=== PATIENT | female | born 1990 | race Caucasian/White ===

== ENCOUNTER → 2018-08-05 | Outpatient (REF) | payer OTHER ==
[2018-08-09 16:39] LABS: HPV HYBRID CAPTURE II Negative (Negative)
== END ==
LOC: M LAB REF 17:17
PROVIDERS: ATTEND Advanced Practice Midwife
DX: Z01.411 Encounter for gynecological examination (general) (routine) with abnormal findings (principal); Z11.51 Encounter for screening for human papillomavirus (HPV)
CPT/HCPCS: 87624; G0123

== ENCOUNTER → 2018-08-05 | Outpatient (CLI) | payer BC ==
[2018-08-05 19:00] LABS: HCG, SERUM QUALITATIVE NEGATIVE (NEGATIVE)
== END ==
LOC: M SMT 15:08
PROVIDERS: ATTEND Advanced Practice Midwife
DX: Z01.419 Encounter for gynecological examination (general) (routine) without abnormal findings (principal)

== ENCOUNTER → 2018-11-18 | Outpatient (CLI) | payer BC ==
[2018-11-18 14:05] LABS: BASO % 0.5 % (0.0-1.0); EOS # 0.1 10^3/uL (0.0-0.50); EOS % 0.8 % (0.0-3.0); HEMOGLOBIN 14.8 g/dl (12.0-15.5); LYMPH # 1.8 10^3/uL (1.5-4.5); LYMPH % 23.9 % (24.0-44.0); MEAN CORPUSCULAR HGB CONC 34.4 g/dl (32.0-36.5); MONO # 0.6 10^3/uL (0.0-0.8); NEUTROPHILS % 66.5 % (36.0-66.0); PLATELET COUNT, AUTOMATED 341 10^3/uL (150-450); RED BLOOD COUNT 4.78 10^6/uL (4.00-5.40); WHITE BLOOD COUNT 7.5 10^3/uL (4.0-10.0)
[2018-11-18 14:55] LABS: HEPATITIS C VIRUS ABY INDEX < 0.0 INDEX (<0.8); HIV 1&2 SCREEN CENTAUR NEGATIVE (NEGATIVE); RUBELLA IgG QUALITATIVE IMMUNE (IMMUNE)
[2018-11-18 15:31] LABS: CHLAMYDIA DNA AMPLIFICATION NEGATIVE (NEGATIVE); GC DNA AMPLIFICATION NEGATIVE (NEGATIVE)
== END ==
LOC: M SMT 10:48
PROVIDERS: ATTEND Advanced Practice Midwife
DX: Z36.89 Encounter for other specified antenatal screening (principal); Z3A.00 Weeks of gestation of pregnancy not specified

== ENCOUNTER → 2019-01-13 | Outpatient (CLI) | payer BC ==
--- NOTE | 2019-01-13 10:50 | REP ---
Clinical: Anatomical evaluation. Comparison: None . Findings: Examination demonstrates a single live intrauterine in cephalic presentation. motion is identified by technologist. Placenta is noted anterior and grade 1 without evidence for placenta previa or abruption. Amniotic fluid volume is normal. Cervix measures 3.8 cm in length and appears closed. Nuchal cord cannot be excluded. 2.1 cm anterior intramural fibroid noted. Gestational age by LMP 19 weeks 0 days with HOLLY 06/09/2019 . Gestational age by current measurements 19 weeks 4 days with HOLLY 06/05/2019 . FHR equals 150 beats per minute. BPD 4.6 cm 19 weeks 5 days HC 17.1 cm 19 weeks 5 days AC 14.5 cm 19 weeks 5 days FL 3.2 cm 19 weeks 6 days HL 2.8 cm 19 weeks 1 day HC/AC ratio 1.18 Estimated weight 312 grams ( 77th percentile). Anatomical assessment demonstrates normal structures including cranium, choroid plexus, cavum, cerebellum/posterior fossa, lungs, four-chamber heart, diaphragm, stomach, cord insertion/three-vessel cord, kidneys/bladder, spine, and extremities. Limited evaluation of the facial features and cardiac ventricular outflow tract. Impression: 1. Single live intrauterine in cephalic presentation demonstrating appropriate interval growth. 2. Anterior intramural fibroid. 3. Nuchal cord cannot be excluded. 4. Limited evaluation of the facial features and cardiac ventricular outflow tract. Electronically Signed by New Skinner MD 01/13/2019 10:41 A
== END ==
LOC: M RAD 09:46
PROVIDERS: ATTEND Advanced Practice Midwife
DX: O34.12 Maternal care for benign tumor of corpus uteri, second trimester (principal); Z36.89 Encounter for other specified antenatal screening; Z3A.19 19 weeks gestation of pregnancy; D25.1 Intramural leiomyoma of uterus

== ENCOUNTER → 2019-01-27 | Outpatient (CLI) | payer BC ==
--- NOTE | 2019-01-27 16:23 | REP ---
Obstetric sonography: History: Supervision of , followup anatomy. Findings: Scanning through the gravid uterus demonstrates a viable single intrauterine in a variable lie. motion is observed and heart rate is recorded at 146 beats per minute. An anterior grade 0 placenta is seen without evidence of previa or abruption. Amniotic fluid is subjectively normal. Closed cervical length is 3.3 cm. No extrauterine abnormalities observed. There has been appropriate interval growth. There is a venous placental oliveira noted 4 cm in greatest diameter. There is a possible fibroid in the anterior aspect of the uterus 1.5 cm in greatest diameter. The following anatomic structures are identified today and felt to be unremarkable: cranium, choroid plexus, cavum, cerebellum and posterior fossa, face and profile, lungs, four-chamber heart with right ventricular outflow tract view, diaphragm, left-sided stomach, abdominal wall cord insertion, three-vessel cord, kidneys and bladder, spine. Biometry chart: BPD 5.1 cm = 21 weeks 4 days HC 19.2 cm = 21 weeks 3 days AC 16.7 cm = 21 weeks 5 days FL 3.5 cm = 21 weeks 0 days HL 3.5 cm = 21 weeks 6 days HC/AC ratio normal 1.15. Cephalic index normal 0.74. Estimated weight 419 grams, 0 pounds 14 ounces, 60th percentile for 21 weeks 0 days. Impression: Viable single intrauterine gestation at 21 weeks 1 day by today's composite sonographic criteria. Expected gestational age estimate based on prior sonography is 21 weeks 4 days. HOLLY by prior sonography June 05, 2019. There has been appropriate interval growth. In conjunction with previous sonogram, anatomic survey is felt to be complete. Electronically Signed by Patrick Chowdhury MD 01/27/2019 04:31 P
== END ==
LOC: M RAD 13:14
PROVIDERS: ATTEND Obstetrics & Gynecology
DX: Z34.02 Encounter for supervision of normal first pregnancy, second trimester (principal); Z36.2 Encounter for other antenatal screening follow-up; Z3A.21 21 weeks gestation of pregnancy

== ENCOUNTER → 2019-03-03 | Outpatient (CLI) | payer BC ==
[2019-03-03 19:44] LABS: HEMATOCRIT 40.2 % (36.0-47.0); MEAN CORPUSCULAR HEMOGLOBIN 29.1 pg (27.0-33.0); MEAN CORPUSCULAR HGB CONC 32.3 g/dl (32.0-36.5); MEAN CORPUSCULAR VOLUME 89.9 fl (80.0-96.0); PLATELET COUNT, AUTOMATED 311 10^3/uL (150-450); RED BLOOD COUNT 4.47 10^6/uL (4.00-5.40); WHITE BLOOD COUNT 10.1 10^3/uL (4.0-10.0)
== END ==
LOC: M SMT 11:41
PROVIDERS: ATTEND Obstetrics & Gynecology
DX: Z34.02 Encounter for supervision of normal first pregnancy, second trimester (principal); Z3A.00 Weeks of gestation of pregnancy not specified

== ENCOUNTER → 2019-05-09 | Outpatient (REF) | payer BC | LOC: M SFHCWAGY 09:50 | PROVIDERS: ATTEND Specialist | DX: Z36.85 Encounter for antenatal screening for Streptococcus B (principal) ==

== ENCOUNTER 2019-05-18 09:46 | Inpatient (IN) | payer BC ==
[~2019-05-18] VITALS: Ht 167.6 cm; Wt 104.1 kg
[2019-05-18] MEDS ORDERED: PRENTAB9 PO (10:00)
[2019-05-18 10:07] VITALS: BP 123/67
[2019-05-18] MEDS ORDERED: LR 1,000 ML IV SCH (10:50)
[2019-05-18] MEDS ORDERED: PENICILLIN G POTASSIUM IV 5 MU in D5W MINI-BAG PLUS 100 ML IV STA (10:50)
[2019-05-18] MEDS ORDERED: LACTATED RINGER'S 1000 ML IV STA (10:50)
[2019-05-18] MEDS ORDERED: OXYTOCIN 30 UNITS IN 0.9% NaCl 500ML IV BAG (J2590) As Ordered ONE (11:10)
[2019-05-18 11:17] LABS: HEMOGLOBIN 14.1 g/dl (12.0-15.5); MEAN CORPUSCULAR HEMOGLOBIN 30.1 pg (27.0-33.0); MEAN CORPUSCULAR HGB CONC 34.4 g/dl (32.0-36.5); MEAN CORPUSCULAR VOLUME 87.4 fl (80.0-96.0); PLATELET COUNT, AUTOMATED 301 10^3/uL (150-450); RED BLOOD COUNT 4.69 10^6/uL (4.00-5.40); WHITE BLOOD COUNT 17.3 10^3/uL (4.0-10.0)
--- NOTE | 2019-05-18 11:29 | HPE ---
DATE OF ADMISSION: 05/18/2019 REASON FOR ADMISSION: Spontaneous rupture of membranes. 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 She reports contractions which started approximately at 4 a.m. this morning. She denied any vaginal bleeding. Upon evaluation in the labor and delivery, she reports a gush of clear fluid. Reports active movement. Her course has been unremarkable. She initiated care in the first trimester that has been appropriate throughout. PAST MEDICAL HISTORY: None. PAST SURGICAL HISTORY: None. PAST OBSTETRICAL HISTORY: She is 1. Her medications include: - vitamins She has no known drug allergies. SOCIAL HISTORY: She denies any alcohol, tobacco, or drug use during her . On physical examination, her vital signs are stable. She is afebrile. She has a heart rate as 120s with moderate variability. Contractions are approximately every 2 minutes on tocometer. Her general appearance is no acute distress. Her lungs are clear to auscultation bilaterally. Cardiovascular: Heart, regular rate and rhythm. Her abdomen is gravid, nontender. Cervical examination: She is grossly ruptured, 5 cm dilated, 90% effaced, -1 station. LABORATORIES: Blood type is O negative. Antibody screen is negative. Rubella is immune. Rapid plasma reagin (RPR) is nonreactive. Hepatitis surface antigen is negative. HIV is negative. Hepatitis C is nonreactive. Chlamydia and gonorrhea screens are negative. She had a normal 1-hour Glucola. She is Group B streptococcus (GBS) positive. 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 Spontaneous rupture of membranes. 2. Reassuring status. The plan is: 1. Admit to labor and delivery. 2. CBC, rapid plasma reagin (RPR), type and screen. 3. Penicillin for group B streptococcus positive. 4. Anticipate spontaneous vaginal delivery.
[2019-05-18 12:24] VITALS: BP 140/85
[2019-05-18] MEDS ORDERED: OXYTOCIN DRIP 30 UNITS in IV 1 EA IV SCH (13:12)
[2019-05-18] MEDS ORDERED: ACETAMINOPHEN 500 MG TAB PO PRN (13:15)
[2019-05-18] MEDS ORDERED: ANUSOL HC CREAM 30GM TOP PRN (13:15)
[2019-05-18] MEDS ORDERED: DIBUCAINE 1% OINTMENT 30GM TOP PRN (13:15)
[2019-05-18] MEDS ORDERED: ACETAMINOPHEN TAB 650MG DOSE (2X325MG) PO PRN (13:15)
[2019-05-18] MEDS ORDERED: MOM 30ML SUSPENSION UDC PO PRN (13:15)
[2019-05-18] MEDS ORDERED: IBUPROFEN 800 MG TAB PO PRN (13:15)
[2019-05-18] MEDS ORDERED: MEASLES,MUMPS,RUBELLA VACCINE INJ (MMR-II) (90707) SC SCH (13:15)
[2019-05-18] MEDS ORDERED: RHOGAM 300 MCG (1500 IU) INJ (J2790) IM SCH (13:15)
[2019-05-18] MEDS ORDERED: METHYLERGONOVINE MALEATE 0.2 MG TAB PO PRN (13:15)
--- NOTE | 2019-05-18 13:42 | DN ---
DATE: 05/18/2019 TIME OF : 1243 GENDER: Male. APGARS: 9 and 10 WEIGHT: 3540 grams or 7 pounds 13 ounces. ANESTHESIA: None. ESTIMATED BLOOD LOSS: 300 mL. LACERATIONS: None. COUNTS: 10 laparotomy sponges accounted to prior to after delivery. Two sharps removed from delivery field. DELIVERY NOTE: On 05/18/2019, at 1243, De. De lRio, a 29-year-old 1 now para 1, had a spontaneous vaginal delivery of a live born male infant, Apgars 9 and 10, weight was 3540 grams 7 pounds 13 ounces. Head was delivered occiput anterior (OA) over intact perineum followed by delivery of shoulder and corpus. Infant was handed to mom with good cry. Cord was clamped times two, was cut by the father of baby under my direction. Cord blood was obtained. Placenta was then drained and delivered grossly intact. A pre-mixed bag of 500 ounces of normal saline with 30 units of Pitocin was then bolused along with uterine massage. The uterus was firm on inspection. There was some vaginal abrasions. No definitive lacerations. Cervix, vaginal and perineum was hemostatic. Mom and baby recovered in stable condition.
[2019-05-18] MEDS ORDERED: PENICILLIN G POTASSIUM IV 2.5 MU in IV 1 EA IV SCH (15:00)
[2019-05-18 16:04] VITALS: BP 131/78
[2019-05-18 18:00] VITALS: BP 142/66
[2019-05-18] MEDS: DOCUSATE SODIUM 100 MG CAP PO PRN (20:50)
[2019-05-18] MEDS: IBUPROFEN 600 MG TAB PO PRN (20:52)
[2019-05-19 06:00] VITALS: BP 121/70
[2019-05-19] MEDS: PRENATAL VITAMINS CHEWABLE TABLET PO SCH (08:38)
--- NOTE | 2019-05-19 08:51 | IPNPDOC ---
Text Note Date of Service The patient was seen on 05/19/19. NOTE PP #1 Feels well. Adequate pain management. . Voiding. VSS, afebrile, normotensive. Breasts soft, nipples intact Fundus firm, NT, down 1 FB Lochia rubra light without odor Perineum intact PPD #1 Frequent nursing. Anticipate D/C in am VS,Fishbone, I+O VS, Fishbone, I+O Laboratory Tests 05/18/19 11:03 Vital Signs Date Time Temp Pulse Resp B/P (MAP) Pulse Ox O2 Delivery O2 Flow Rate FiO2 05/19/19 06:00 98.0 81 20 121/70 (87) 97 Room Air I&O- Last 24 Hours up to 6 AM 05/19/19 06:00 Intake Total 1600 ml Output Total 700 ml Balance 900 ml Lily Gutierrez CNM May 19, 2019 08:51
[2019-05-19] MEDS ORDERED: guaiFENesin SYRUP 200 MG/10 ML UDC PO PRN (12:00)
[2019-05-19 18:00] VITALS: BP 118/69
[2019-05-19] MEDS: DOCUSATE SODIUM 100 MG CAP PO PRN (20:22)
[2019-05-20 06:00] VITALS: BP 104/68
[2019-05-20] MEDS: PRENATAL VITAMINS CHEWABLE TABLET PO SCH (08:11)
[2019-05-20] MEDS: IBUPROFEN 600 MG TAB PO PRN (08:13)
[2019-05-20 18:00] VITALS: BP 117/67
[2019-05-21 06:00] VITALS: BP 125/81
[2019-05-21] MEDS ORDERED: IBUP80TA PO (08:30)
[2019-05-21] MEDS ORDERED: ACET-683 PO (08:30)
[2019-05-21] MEDS: PRENATAL VITAMINS CHEWABLE TABLET PO SCH (09:27)
== END 2019-05-21 11:40 | disposition home or self-care (01) | DRG 560 ==
LOC: M LDO 09:46 → M LDI 10:44 → M OBS 16:03
PROVIDERS: ADMIT Obstetrics & Gynecology; ATTEND Obstetrics & Gynecology
PROC: 10E0XZZ Delivery of Products of Conception, External Approach (ICD-10-PCS; principal; 2019-05-18)
DX: O42.013 Preterm premature rupture of membranes, onset of labor within 24 hours of rupture, third trimester (principal); Z3A.36 36 weeks gestation of pregnancy; Z37.0 Single live birth; O99.824 Streptococcus B carrier state complicating childbirth

== ENCOUNTER → 2019-12-29 | Outpatient (CLI) | payer BC ==
[~2019-12-29] MED LIST: ACET-683 PO; IBUP80TA PO; PRENTAB9 PO
== END ==
LOC: M LABSMTC 12:18
PROVIDERS: ATTEND Pediatrics
DX: Z11.59 Encounter for screening for other viral diseases (principal); Z20.828 Contact with and (suspected) exposure to other viral communicable diseases
CPT/HCPCS: C9803; U0002

== ENCOUNTER → 2021-11-21 | Outpatient (REF) | payer BC | LOC: M SFHCWAGY 17:01 | PROVIDERS: ATTEND Obstetrics & Gynecology | DX: Z01.419 Encounter for gynecological examination (general) (routine) without abnormal findings (principal) | CPT/HCPCS: 87624; G0123 ==

== ENCOUNTER → 2022-06-26 | Outpatient (REF) | payer BC | LOC: M SFHCDERM 17:25 | PROVIDERS: ATTEND Dermatology | DX: D22.9 Melanocytic nevi, unspecified (principal); L98.6 Other infiltrative disorders of the skin and subcutaneous tissue ==